=== PATIENT | male | born 1970 ===

== ENCOUNTER 2017-08-21 14:39 | Emergency (ER) | payer BC, OTHER ==
[2017-08-21 14:43] VITALS: BMI 27.6
[2017-08-21 14:47] VITALS: RESP 18
[2017-08-21] MEDS ORDERED: Lidocaine 1% Inj (20ml) IJ STA (15:10)
[2017-08-21] MEDS ORDERED: TDAP Vaccine 0.5 mL Syr IM ONE (15:10)
--- NOTE | 2017-08-21 15:10 | ED PDOC ---
Arrival/HPI - General Chief Complaint: Abnormal Skin Integrity Time Seen by Provider: 08/21/17 15:05 Historian: Patient - History of Present Illness Narrative History of Present Illness (Text): 08/21/17 15:05 47 y/o male, no significant pmh, last tetanus over 10 years ago, history of left eye punch years ago, c/o lt. eyebrow laceration s/p hit by the gym lifting tool about 3 hours ago. Aching, was bleeding, no change in vision, no headache or neck pain, no painful movement of the eye, no change in vision, no nosebleed , no rash, no other medical or psychological complaints. Past Medical History - Provider Review Nursing Documentation Reviewed: Yes - Past History Past History: No Previous - Infectious Disease Hx of Infectious Diseases: None - Tetanus Immunization Tetanus Immunization: Up to Date - Past Medical History Past Medical History: No Previous - Psychiatric Hx Depression: No Hx Emotional Abuse: No Hx Physical Abuse: No Hx Substance Use: No - Past Surgical History Past Surgical History: No Previous - Suicidal Assessment Feels Threatened In Home Enviroment: No Family/Social History - Physician Review Nursing Documentation Reviewed: Yes Family/Social History: Unknown Family HX Smoking Status: Never Smoked Hx Alcohol Use: No Hx Substance Use: No Hx Substance Use Treatment: No Allergies/Home Meds Allergies/Adverse Reactions: Allergies No Known Allergies Allergy (Verified 02/26/13 07:24) Review of Systems - Review of Systems Constitutional: absent: Fatigue, Fevers Eyes: absent: Vision Changes ENT: absent: Hearing Changes, Sore Throat, Rhinorrhea Respiratory: absent: SOB, Cough Cardiovascular: absent: Chest Pain, Orthopnea, Syncope Gastrointestinal: absent: Abdominal Pain, Diarrhea, Nausea, Vomiting Musculoskeletal: absent: Arthralgias, Back Pain Skin: absent: Rash, Pruritis Neurological: absent: Headache, Dizziness, Speech Changes Psychiatric: absent: Anxiety, Depression Physical Exam Vital Signs Reviewed: Yes Vital Signs Temp Pulse Resp BP Pulse Ox 08/21/17 14:39 98.4 F 67 18 118/77 97 Temperature: Afebrile Blood Pressure: Normal Pulse: Regular Respiratory Rate: Normal Appearance: Positive for: Well-Appearing, Non-Toxic, Comfortable Pain Distress: Mild Mental Status: Positive for: Alert and Oriented X 3 - Systems Exam Head: Present: Atraumatic, Normocephalic, Other (Facial: +ttp on the lt. supraorbital lateral eyebrow tenderness visible approx. 1.5cm superficial to intermediate depth laceration, no oozing/discharge, no streaking, no ulcers, no painful movement of the eye. ). No: Tenderness, Contusion, Swelling, Ecchymosis , Abrasion, Laceration Pupils: Present: PERRL Extroacular Muscles: Present: EOMI, Other (Pt. has no entractment). No: Gaze Palsy, Entrapment Conjunctiva: Present: Normal Ears: Present: NORMAL TM, Normal Canal. No: Erythema Mouth: Present: Moist Mucous Membranes Nose (External): Present: Atraumatic. No: Abrasion, Contusion Nose (Internal): Present: Normal Inspection, No Active Bleeding. No: Rhinorrhea , Septal Deviation, Septal Hematoma, Epistaxis Neck: Present: Normal Range of Motion. No: MIDLINE TENDERNESS, Paraspinal Tenderness, Lymphadenopathy Respiratory/Chest: Present: Clear to Auscultation, Good Air Exchange. No: Respiratory Distress, Accessory Muscle Use Cardiovascular: Present: Regular Rate and Rhythm, Normal S1, S2. No: Murmurs Abdomen: No: Tenderness, Distention, Peritoneal Signs Back: Present: Normal Inspection Upper Extremity: Present: Normal Inspection. No: Cyanosis, Edema Lower Extremity: Present: Normal Inspection. No: Edema Neurological: Present: GCS=15, CN II-XII Intact, Speech Normal Skin: Present: Warm, Dry, Normal Color. No: Rashes Psychiatric: Present: Alert, Oriented x 3, Normal Insight, Normal Concentration Medical Decision Making ED Course and Treatment: 08/21/17 15:20 -tdap -CT facial -will suture 08/21/17 16:42 -CT Show: There is a blowout fracture of the left orbital floor. This has a well -circumscribed appearance and there is no blood in the maxillary sinus to suggest an acute injury. The finding may be chronic. There is herniation of orbital fat through the defect. -I reviewed the CT result with the patient and he stated that this is old findings for him as he was punch years ago and he has no painful movement of the eye. Clinically this appear to be chronic. Case and radiology result discussed with Dr. Gallagher, suggest outpatient ENT follow up. -Sensation intact, motor 5/5, wound irrigated with normal saline 1000cc, clean with Betadine, sterile procedure as usual, 1% lidocaine with 0.5 mL with local infiltration, 6-0 nylon suture made 3 sutures, hemostasis obtained, bacitracin apply, gauze dressing, sensation intact, motor 5/5, minimal blood loss, pt. tolerated the procedure well with no complication. Pain decreased and pt. feel much better. total procedure time 25 minutes. -Discharge home with augmentin, motrin, bacitracin ointment, ice compression, avoid blowing the nose, education on to keep the dressing and wound clean and dry for 1-2 days then clean with soap and water twice daily, apply Neosporin or bacitracin twice daily, keep the wound open at night starting day 3-4 as you are sleeping in a clean environment and not working which allow the wound to have proper air exposure to avoid moisture which will delayed the wound healing , sutures need to be removed by day 5, avoid strenuous exercise or activity, follow up with your own primary care doctors and ENT and OMFS specialists within 2 days, return to ER for any concerning/worsening signs or symptoms [facility] [address] [address] . - RAD Interpretation Radiology Orders: 08/21/17 15:10 MAXILLOFACIAL W/O CONTRAST [CT] Stat NASAL BONES: Unremarkable. ORBITS: There is a blowout fracture of the left orbital floor. This has a well- circumscribed appearance and there is no blood in the maxillary sinus to suggest an acute injury. The finding may be chronic. There is herniation of orbital fat through the defect. The findings are best seen on coronal image 64 series 601. The physician's cook's assistant Gerson Collado was notified at 3:45 p.m. PARANASAL SINUSES/ MASTOIDS: Clear. MAXILLA: Unremarkable. MANDIBLE/ TEMPOROMANDIBULAR JOINTS: Unremarkable. SKULL BASE: Unremarkable. TEMPORAL BONES: Middle ears and mastoid grossly unremarkable. OTHER FINDINGS: None. IMPRESSION: Blowout fracture of the left orbital floor. This finding may be chronic. Clinical correlation is suggested Amusement Ride Operator: Radiologist - Medication Orders Current Medication Orders: Discontinued Medications Lidocaine HCl (Lidocaine 1% (20ml)) 0.5 ml IJ STAT STA Stop: 08/21/17 15:11 Last Admin: 08/21/17 15:41 Dose: 0.5 ml Tetanus/Reduced Diphtheria/Acell Pertussis (Boostrix Vaccine Inj) 0.5 ml IM .ONCE ONE Stop: 08/21/17 15:11 Last Admin: 08/21/17 15:39 Dose: 0.5 ml MAR Immunization Data Document 08/21/17 15:39 (Rec: 08/21/17 15:40 [id number]) Immunization Data Vaccine Information Sheet Given Yes Vaccine Information Sheet Given Date 08/20/17 Associated Event Comment left above eye laceration Immunization Registry Document 08/21/17 15:39 (Rec: 08/21/17 15:40 [email or web address]) Immunization Registry Consent Date 08/21/17 - PA / HISTOLOGY TECHNOLOGIST / Resident Statement / has reviewed & agrees with the documentation as recorded. Disposition/Present on Arrival - Present on Arrival Any Indicators Present on Arrival: No History of DVT/PE: No History of Uncontrolled Diabetes: No Urinary Catheter: No History of Decub. Ulcer: No History Surgical Site Infection Following: None - Disposition Have Diagnosis and Disposition been Completed?: Yes Diagnosis: Facial injury, Facial laceration, Abnormal CAT scan, Orbital fracture Disposition: HOME/ ROUTINE Disposition Time: 15:21 Patient Plan: Discharge Patient Problems: Current Active Problems Problem Status Onset Facial injury Acute Facial laceration Acute Condition: GOOD Additional Instructions: -Discharge home with augmentin, motrin, bacitracin ointment, ice compression, avoid blowing the nose, education on to keep the dressing and wound clean and dry for 1-2 days then clean with soap and water twice daily, apply Neosporin or bacitracin twice daily, keep the wound open at night starting day 3-4 as you are sleeping in a clean environment and not working which allow the wound to have proper air exposure to avoid moisture which will delayed the wound healing , sutures need to be removed by day 5, avoid strenuous exercise or activity, follow up with your own primary care doctors and ENT and OMFS specialists within 2 days, return to ER for any concerning/worsening signs or symptoms [facility] [address] [address] . Prescriptions: Amoxicillin/Clavulanate [Augmentin 875 MG-125 MG] 1 tab PO BID #10 tab Bacitracin Ointment [Bacitracin] 1 appful TOP BID #15 g Ibuprofen [Motrin] 600 mg PO QID PRN #20 tab PRN Reason: Other Referrals: Medivinicio Valero, [Primary Care Provider] - Follow up with primary Cr Schilling DO [Staff Provider] - Follow up with primary Kenneth Gotti MD [Staff Provider] - Follow up with primary [facility] [place] - Follow up with primary Forms: WORK NOTE
--- NOTE | 2017-08-21 15:50 | CT ---
PROCEDURE: CT MAXILLOFACIAL BONES WITHOUT CONTRAST HISTORY: lt. periorbital injury with laceratoin COMPARISON: None TECHNIQUE: Contiguous axial CT images of the maxillofacial bones were obtained. Coronal and sagittal reformats were generated. Radiation dose: Total exam DLP = 950 mGy-cm. This CT exam was performed using one or more of the following dose reduction techniques: Automated exposure control, adjustment of the mA and/or kV according to patient size, and/or use of iterative reconstruction technique. FINDINGS: NASAL BONES: Unremarkable. ORBITS: There is a blowout fracture of the left orbital floor. This has a well-circumscribed appearance and there is no blood in the maxillary sinus to suggest an acute injury. The finding may be chronic. There is herniation of orbital fat through the defect. The findings are best seen on coronal image 64 series 601. The physician's data entry assistant Gerson Collado was notified at 3:45 p.m. PARANASAL SINUSES/ MASTOIDS: Clear. MAXILLA: Unremarkable. MANDIBLE/ TEMPOROMANDIBULAR JOINTS: Unremarkable. SKULL BASE: Unremarkable. TEMPORAL BONES: Middle ears and mastoid grossly unremarkable. OTHER FINDINGS: None. IMPRESSION: Blowout fracture of the left orbital floor. This finding may be chronic. Clinical correlation is suggested
[2017-08-21 17:49] VITALS: BP 138/76; PULSE 77; TEMP 97.8; O2SAT 98
== END 2017-08-21 17:23 | disposition home or self-care (01) ==
LOC: ED 14:39
DX: S01.112A Laceration without foreign body of left eyelid and periocular area, initial encounter (principal); S02.32XA Fracture of orbital floor, left side, initial encounter for closed fracture; W22.8XXA Striking against or struck by other objects, initial encounter; Y92.39 Other specified sports and athletic area as the place of occurrence of the external cause; R94.8 Abnormal results of function studies of other organs and systems; Z23 Encounter for immunization

== ENCOUNTER 2017-08-28 18:01 | Emergency (ER) | payer SELFPAY ==
[2017-08-28 18:02] VITALS: BMI 27.6
[2017-08-28 18:24] VITALS: RESP 19; TEMP 98
--- NOTE | 2017-08-28 18:27 | ED PDOC ---
Arrival/HPI - General Chief Complaint: Suture/Staple Removal Time Seen by Provider: 08/28/17 18:17 Historian: Patient - History of Present Illness Narrative History of Present Illness (Text): 08/28/17 18:24 47 y/o male, presents to the ED with suture removal s/p laceration repair to left brow. Pt reports no pain or bleeding, no headache or neck pain, no painful movement of the eye, no change in vision, no eye or nasal discharge, no rash or any other complaint. Time/Duration: Prior to Arrival Symptom Course: Improving Quality: Unable to Describe Severity Level: Mild Activities at Onset: Rest Context: Home Past Medical History - Provider Review Nursing Documentation Reviewed: Yes - Travel History Have you recently traveled outside [place] w/in the past 3 mons?: No - Past History Past History: No Previous - Infectious Disease Hx of Infectious Diseases: None - Tetanus Immunization Tetanus Immunization: Up to Date - Past Medical History Past Medical History: No Previous - Psychiatric Hx Depression: No Hx Emotional Abuse: No Hx Physical Abuse: No Hx Substance Use: No - Past Surgical History Past Surgical History: No Previous - Surgical History Other/Comment: vasectomy - Anesthesia Hx Anesthesia: Yes Hx Anesthesia Reactions: No Hx Malignant Hyperthermia: No - Suicidal Assessment Feels Threatened In Home Enviroment: No Family/Social History - Physician Review Nursing Documentation Reviewed: Yes Family/Social History: Unknown Family HX Smoking Status: Never Smoked Hx Alcohol Use: No Hx Substance Use: No Hx Substance Use Treatment: No Allergies/Home Meds Allergies/Adverse Reactions: Allergies No Known Allergies Allergy (Verified 02/26/13 07:24) Review of Systems - Review of Systems Constitutional: Normal Eyes: Normal. absent: Vision Changes, Photophobia, Eye Pain ENT: Normal Respiratory: Normal Cardiovascular: Normal Gastrointestinal: Normal Musculoskeletal: Normal. absent: Neck Pain Skin: Normal, Laceration (sutures over the left brow) Neurological: Normal. absent: Headache, Dizziness Endocrine: Normal Hemo/Lymphatic: Normal Psychiatric: Normal Physical Exam Vital Signs Reviewed: Yes Vital Signs Temp Pulse Resp BP Pulse Ox 08/28/17 19:03 98 F 19 119/71 98 08/28/17 19:00 98 F 75 19 119/71 99 08/28/17 18:16 98 F 85 19 124/71 98 Temperature: Afebrile Blood Pressure: Normal Pulse: Regular Respiratory Rate: Normal Appearance: Positive for: Well-Appearing, Non-Toxic, Comfortable Pain Distress: None Mental Status: Positive for: Alert and Oriented X 3 - Systems Exam Head: Present: Atraumatic Pupils: Present: PERRL Extroacular Muscles: Present: EOMI Conjunctiva: Present: Normal Ears: Present: Normal Nose (External): Present: Atraumatic Neurological: Present: GCS=15, CN II-XII Intact, Speech Normal Skin: Present: Warm, Dry, Normal Color, Laceration (well healing left brow laceration; mild ecchymosis around the left orbit) Psychiatric: Present: Alert, Oriented x 3, Normal Insight, Normal Concentration Medical Decision Making ED Course and Treatment: 08/28/17 18:27 Impression 47 y/o male, presents to the ED with an eyebrow suture removal s/p laceration repair to left eye. Plan remove sutures assess and dispo home Advised pt on wound care Lacerations edges closed and healing well; no erythema, edema or bleeding on removal of sutures; Pt tolerated procedure well Disposition/Present on Arrival - Present on Arrival Any Indicators Present on Arrival: Yes History of DVT/PE: No History of Uncontrolled Diabetes: No Urinary Catheter: No History of Decub. Ulcer: No History Surgical Site Infection Following: None - Disposition Have Diagnosis and Disposition been Completed?: Yes Diagnosis: Visit for suture removal Disposition: HOME/ ROUTINE Disposition Time: 18:42 Patient Plan: Discharge Condition: GOOD Discharge Instructions (ExitCare): Stitches Removal Additional Instructions: Jayson, thank you for letting us take care of you today. Your provider was HECTOR Fu. You were treated for suture removal. The emergency medical care you received today was directed at your acute symptoms. If you were prescribed any medication, please fill it and take as directed. It may take several days for your symptoms to resolve. Return to the Emergency Department if your symptoms worsen, do not improve, or if you have any other problems. Please contact your doctor or call one of the physicians/clinics you have been referred to that are listed on the Patient Visit Information form that is included in your discharge packet. Bring any paperwork you were given at discharge with you along with any medications you are taking to your follow up visit. Our treatment cannot replace ongoing medical care by a primary care provider (PCP) outside of the emergency department. Thank you for allowing the [facility] team to be part of your care today. Referrals: Wassef,Wagih G, MD [Primary Care Provider] - Follow up with primary Forms: [facility] (Indonesian)
[2017-08-28 19:03] VITALS: BP 119/71; PULSE 75
[2017-08-28 19:05] VITALS: O2SAT 98
== END 2017-08-28 19:03 | disposition home or self-care (01) ==
LOC: ED 18:01
DX: S01.112D Laceration without foreign body of left eyelid and periocular area, subsequent encounter (principal)